=== PATIENT | female | born 1970 | race Native Hawaiian/Other Pacific Islander ===

== ENCOUNTER 2017-06-19 13:31 | Outpatient (CLI) | payer BC | END 2017-06-19 21:12 | disposition home or self-care (01) | LOC: RAD 13:31 | DX: R06.02 Shortness of breath (principal) ==

== ENCOUNTER 2020-08-22 15:45 | Outpatient (CLI) | payer BC | END 2020-08-22 18:53 | disposition home or self-care (01) | LOC: LABW 15:45 | DX: R68.82 Decreased libido (principal); N95.8 Other specified menopausal and perimenopausal disorders; R53.83 Other fatigue; E55.9 Vitamin D deficiency, unspecified | CPT/HCPCS: 36415; 82306; 82626; 82670; 84144; 84403; 84481 ==

== ENCOUNTER 2021-04-23 08:50 | Outpatient (CLI) | payer BC ==
[2021-04-23 09:10] LABS: PLATELET COUNT 99 K/uL (152-353)
[2021-04-23 09:21] LABS: POTASSIUM 4.1 mmol/L (3.6-5.2)
== END 2021-04-23 21:43 | disposition home or self-care (01) ==
LOC: LABW 08:50
PROVIDERS: ATTEND Nurse Practitioner Family
DX: K74.69 Other cirrhosis of liver (principal)
CPT/HCPCS: 36415; 80053; 82140; 85027

== ENCOUNTER 2021-05-01 15:34 | Outpatient (CLI) | payer BC ==
[2021-05-01 16:26] LABS: PLATELET COUNT 89 K/uL (152-353)
[2021-05-01 17:26] LABS: POTASSIUM 4.4 mmol/L (3.6-5.2)
== END 2021-05-01 20:55 | disposition home or self-care (01) ==
LOC: US 15:34
PROVIDERS: ATTEND Internal Medicine
DX: Z86.2 Personal history of diseases of the blood and blood-forming organs and certain disorders involving the immune mechanism (principal)
CPT/HCPCS: 36415; 80053; 82607; 82728; 82746; 83540; 84466; 85027